=== PATIENT | male | born 1985 | race Caucasian/White ===

== ENCOUNTER 2016-11-05 07:05 | Day surgery (SDC) | payer MEDICAID ==
[~2016-11-05] VITALS: Ht 177.8 cm; Wt 79.8 kg
[2016-11-05 07:58] VITALS: BP 134/71; Ht 177.8 cm; Wt 79.8 kg
[2016-11-05] MEDS ORDERED: HYDROCODONE-APA1 TAB PO (11:10)
== END 2016-11-05 15:20 | disposition home or self-care (01) ==
LOC: D.OPS 07:05 → D.PAN 10:15 → D.OPS 10:15
DX: K80.20 Calculus of gallbladder without cholecystitis without obstruction (principal); F17.200 Nicotine dependence, unspecified, uncomplicated; Z01.812 Encounter for preprocedural laboratory examination

== ENCOUNTER → 2017-04-01 09:29 | Outpatient (CLI) | payer MEDICAID ==
[2016-11-05 07:58] VITALS: BMI 25.3
[~2017-04-01 09:29] MED LIST: HYDROCODONE-APA1 TAB PO
== END | disposition home or self-care (01) ==
LOC: D.CT 09:29
DX: R10.11 Right upper quadrant pain (principal)

== ENCOUNTER 2018-07-09 20:23 | Emergency (ER) | payer MEDICAID ==
[~2018-07-09] VITALS: Ht 177.8 cm; Wt 78.2 kg
[2018-07-09 20:38] VITALS: BP 129/78; Ht 177.8 cm; Wt 78.2 kg
[2018-07-09] MEDS ORDERED: CELEXA10 MG (20:40)
[2018-07-09] MEDS ORDERED: LITHIUM CARBON150 MG PO (20:40)
[2018-07-09] MEDS ORDERED: VOLTAREN75 MG PO (22:01)
== END 2018-07-09 22:11 | disposition home or self-care (01) ==
LOC: D.ER 20:23
DX: S93.401A Sprain of unspecified ligament of right ankle, initial encounter (principal); X50.1XXA Overexertion from prolonged static or awkward postures, initial encounter; Y93.89 Activity, other specified; Y92.89 Other specified places as the place of occurrence of the external cause

== ENCOUNTER 2019-04-21 16:17 | Emergency (ER) | payer OTHER ==
[~2019-04-21] VITALS: Ht 177.8 cm; Wt 67.3 kg
[~2019-04-21 16:17] MED LIST changes: +CELEXA10 MG; +FLUTICASONE PRO16 GM NASAL; +LITHIUM CARBON150 MG PO; +VOLTAREN75 MG PO; +ZYRTEC10 MG PO
[2019-04-21 16:22] VITALS: Ht 177.8 cm; Wt 67.3 kg
[2019-04-21 16:40] LABS: BASOPHILS 0.1 % (0-2); EOSINOPHILS 0.5 % (0-7); HEMATOCRIT 41.9 % (42.0-54.0); HEMOGLOBIN 14.6 g/dL (13.5-17.5); IMMATURE GRANULOCYTES 0.1 % (0-5); LYMPHOCYTES 17.5 % (15-50); MCH 28.3 pg (26.0-34.0); MCHC 34.8 g/dL (31.0-37.0); MCV 81.2 fL (80.0-100.0); MEAN PLATELET VOLUME 10.7 fL (7.4-10.4); NEUTROPHILS 75.8 % (40-80); PLATELET COUNT 198 10x3/uL (130-400); RBC 5.16 10x6/uL (4.20-6.10); RDW 12.8 % (11.5-14.5); WBC 8.1 10x3/uL (4.8-10.8)
[2019-04-21 16:55] LABS: INR 1.01 (0.85-1.17); PROTIME 13.2 SECONDS (11.6-15.0)
[2019-04-21 16:56] LABS: APTT 30.1 SECONDS (22.8-39.4)
[2019-04-21 17:00] LABS: CALC OSMOLALITY 281 mosm/kg (275-300); CALCIUM 9.2 mg/dL (8.5-10.1); CARBON DIOXIDE 27.9 mmol/L (21.0-32.0); CHLORIDE - SERUM 105 mmol/L (98-107); CREATININE - SERUM 1.1 mg/dL (0.6-1.3); GLUCOSE 106 mg/dL (74-106); POTASSIUM - SERUM 3.4 mmol/L (3.5-5.1); SODIUM 142 mmol/L (136-145); UREA NITROGEN 10 mg/dL (7-18); eGFR NON AFRICAN AMERICAN 82 mL/min (90-120)
[2019-04-21 17:07] LABS: ALBUMIN 4.6 g/dL (3.4-5.0); ALKALINE PHOSPHATASE 78 U/L (30-120); ALT (SGPT) 23 U/L (10-68); BILIRUBIN - TOTAL 0.68 mg/dL (0.2-1.3); CKMB 0.3 U/L (0.0-3.6); CREATINE KINASE 116 UL (21-232); MAGNESIUM - SERUM 1.9 mg/dL (1.8-2.4); PROTEIN - SERUM 8.2 g/dL (6.4-8.2)
[2019-04-21 17:09] LABS: TROPONIN-I < 0.017 ng/mL (0.000-0.060)
[2019-04-21 18:45] VITALS: BP 119/79
== END 2019-04-21 18:45 | disposition home or self-care (01) ==
LOC: D.ER 16:17
PROVIDERS: Family Medicine
DX: R00.2 Palpitations (principal)

== ENCOUNTER 2019-06-19 21:11 | Emergency (ER) | payer OTHER ==
[~2019-06-19] VITALS: Ht 177.8 cm; Wt 64.5 kg
[2019-06-19 21:17] VITALS: Ht 177.8 cm; Wt 64.5 kg
[2019-06-19 21:37] LABS: BASOPHILS 0.2 % (0-2); EOSINOPHILS 1.2 % (0-7); HEMATOCRIT 41.5 % (42.0-54.0); LYMPHOCYTES 40.2 % (15-50); MCH 27.7 pg (26.0-34.0); MCHC 33.7 g/dL (31.0-37.0); MCV 82.2 fL (80.0-100.0); MEAN PLATELET VOLUME 10.9 fL (7.4-10.4); MONOCYTES 7.9 % (2-11); NEUTROPHILS 50.5 % (40-80); PLATELET COUNT 179 10x3/uL (130-400); RBC 5.05 10x6/uL (4.20-6.10); RDW 12.8 % (11.5-14.5); WBC 4.9 10x3/uL (4.8-10.8)
[2019-06-19 21:45] LABS: INR 1.05 (0.85-1.17); PROTIME 13.6 SECONDS (11.6-15.0)
[2019-06-19 21:52] LABS: CALC OSMOLALITY 279 mosm/kg (275-300); CALCIUM 9.1 mg/dL (8.5-10.1); CARBON DIOXIDE 25.5 mmol/L (21.0-32.0); CHLORIDE - SERUM 103 mmol/L (98-107); GLUCOSE 119 mg/dL (74-106); SODIUM 141 mmol/L (136-145); UREA NITROGEN 8 mg/dL (7-18); eGFR NON AFRICAN AMERICAN > 90 mL/min (90-120)
[2019-06-19 22:05] LABS: ALBUMIN 4.1 g/dL (3.4-5.0); ALKALINE PHOSPHATASE 74 U/L (30-120); ALT (SGPT) 19 U/L (10-68); CKMB 0.2 U/L (0.0-3.6); CREATINE KINASE 70 UL (21-232); MAGNESIUM - SERUM 1.8 mg/dL (1.8-2.4); PROTEIN - SERUM 7.7 g/dL (6.4-8.2)
[2019-06-19 22:13] LABS: TROPONIN-I < 0.017 ng/mL (0.000-0.060)
--- NOTE | 2019-06-19 23:42 | NUR ---
INFORMED CHARGE NURSE AND ATTENDING OF ASSESSMENT RESULTS. DR. COBIAN NOTIFIED OF BEHAVIOR AND ASSESSMENT RESULTS. PT IS A LOW RISK PER DR. COBIAN. DR. COBIAN STATES TO GIVE PT RESOURCES AT TIME OF DISCHARGE. NO FURTHER ORDERS AT THIS TIME OF DISCHARGE. NO FURTHER ORDERS AT THIS TIME. RESOURCES REVIEWED WITH PT AND HE VERBALIZED UNDERSTANDING.
[2019-06-20 02:50] VITALS: BP 110/73
== END 2019-06-20 02:46 | disposition home or self-care (01) ==
LOC: D.ER 21:11
PROVIDERS: Family Medicine
DX: R07.89 Other chest pain (principal); E87.6 Hypokalemia; R42 Dizziness and giddiness; K21.9 Gastro-esophageal reflux disease without esophagitis

== ENCOUNTER → 2019-12-05 12:24 | Outpatient (CLI) | payer OTHER ==
[~2019-12-05] VITALS: Ht 177.8 cm; Wt 67.1 kg
[2019-12-05 13:43] VITALS: Ht 177.8 cm; Wt 67.1 kg
== END | disposition home or self-care (01) ==
LOC: D.FANS 09-19 09:00
PROVIDERS: ATTEND Family Medicine
DX: R63.4 Abnormal weight loss (principal); K90.0 Celiac disease